=== PATIENT | female | born 1975 | race American Indian/Alaskan Native ===

== ENCOUNTER 2020-10-01 17:43 | Emergency (ER) | payer MEDICAID ==
--- NOTE | 2020-10-01 19:49 | Event Note ---
ED Screening Note ED Screening Note: left sided abd pain radiates to the back began 3 days ago +n/v no diarrhea normal BM this morning no blood in stool or vomit PMHx sarcoidosis, htn, copd no allergies to meds LNMP: 09/18/2020 PSHx of partial colectomy for constipation This initial assessment/diagnostic orders/clinical plan/treatment(s) is/are subject to change based on patients health status, clinical progression and re- assessment by fellow clinical providers in the ED. Further treatment and workup at subsequent clinical providers discretion. Patient/guardian urged not to elope from the ED as their condition may be serious if not clinically assessed and managed. Initial orders include: labs, ua
[2020-10-01 20:15] LABS: Basophils # (Auto) 0.1 K/mm3 (0.0-0.1); Basophils % (Auto) 0.7 % (0.0-1.8); Eosinophils % (Auto) 0.1 % (0.0-4.3); Hematocrit 34.1 % (30.3-42.9); Lymphocytes # (Auto) 1.4 K/mm3 (1.2-5.4); Lymphocytes % (Auto) 14.1 % (13.4-35.0); Mean Corpuscular HGB Conc 32 % (30-34); Monocytes # (Auto) 0.6 K/mm3 (0.0-0.8); Monocytes % (Auto) 5.8 % (0.0-7.3); Platelet Count 393 K/mm3 (140-440); Red Blood Count 5.02 M/mm3 (3.65-5.03)
[2020-10-01 20:18] LABS: Mean Corpuscular Volume 68 fl (79-97)
[2020-10-01 20:19] LABS: Red Cell Distribution Width 23.3 % (13.2-15.2)
[2020-10-01 20:38] LABS: Alanine Aminotransferase 12 units/L (7-56); Albumin 3.9 g/dL (3.9-5); BUN/Creatinine Ratio 20; Blood Urea Nitrogen 16 mg/dL (7-17); Calcium 9.7 mg/dL (8.4-10.2); Hemolysis Index 10
[2020-10-01] MEDS ORDERED: ONDANSETRON 4 MG/2 ML INJ IV ONE ×2 (20:51→22:52)
[2020-10-01] MEDS ORDERED: DICYCLOMINE 20 MG/2 ML INJ IM ONE (20:51)
[2020-10-01] MEDS ORDERED: SODIUM CHLORIDE 0.9% 1000 ML 1,000 ML IV ONE (20:51)
[2020-10-01 20:52] LABS: Bilirubin,Urine NEG (Negative); Blood,Urine NEG (Negative); Color,Urine Yellow (Yellow); Mucus,Urine 2+ /HPF; Protein,Urine <15 mg/dL mg/dL (Negative); Urobilinogen,Urine < 2.0 mg/dL (<2.0)
--- NOTE | 2020-10-01 21:09 | Emergency Department Report ---
ED Abdominal Pain HPI - General Chief Complaint: Abdominal Pain Stated Complaint: ABDOMINAL PAIN Time Seen by Provider: 10/01/20 19:48 Source: patient Mode of arrival: Ambulatory Limitations: No Limitations - History of Present Illness Initial Comments: Patient is a 44-year-old -[place] female with a history of colorectal resection 1 year ago who presents for left-sided abdominal pain at 8/10 with nausea vomiting x2 days. Patient denies fever, states she is followed by GI at [facility] unsure of MD Name. Patient states last p.o. intake 3 days ago. Symptoms are exacerbated by p.o. intake. Symptoms are relieved by nothing tried. Patient does endorse a small bowel movement this morning had no melena, denies bloody stools, current medications include Nexium, patient denies CVA, pos hx of COPD, LMP 09/18/2020. Severity scale (0 -10): 10 - Related Data Previous Rx's Medication Instructions Recorded Last Taken Type Docusate Sodium [Colace] 100 mg PO BID PRN #30 capsule 10/01/20 Unknown Rx cephALEXin [Keflex] 500 mg PO Q8HR #21 cap 10/01/20 Unknown Rx polyethylene glycoL 3350 [Miralax 17 gm PO BID 7 Days #14 packet 10/01/20 Unknown Rx 3350] ED Review of Systems ROS: Stated complaint: ABDOMINAL PAIN Other details as noted in HPI Constitutional: chills, fever, malaise Eyes: denies: eye pain, eye discharge, vision change ENT: denies: ear pain, throat pain Respiratory: denies: cough, shortness of breath, wheezing Cardiovascular: denies: chest pain, palpitations Endocrine: no symptoms reported Gastrointestinal: abdominal pain, nausea, vomiting. denies: diarrhea, constipation, melena Genitourinary: denies: urgency, dysuria, frequency, hematuria, discharge Musculoskeletal: back pain Skin: as per HPI Neurological: denies: headache, weakness, paresthesias Psychiatric: denies: anxiety, depression Hematological/Lymphatic: denies: easy bleeding, easy bruising ED Past Medical Hx - Past Medical History Additional medical history: sarcoidosis - Surgical History Past Surgical History?: No Additional Surgical History: colo-rectal surgery - Medications Home Medications: Home Medications Medication Instructions Recorded Confirmed Last Taken Type Docusate Sodium [Colace] 100 mg PO BID PRN #30 capsule 10/01/20 Unknown Rx cephALEXin [Keflex] 500 mg PO Q8HR #21 cap 10/01/20 Unknown Rx polyethylene glycoL 3350 [Miralax 17 gm PO BID 7 Days #14 packet 10/01/20 Unknown Rx 3350] ED Physical Exam - General Limitations: No Limitations General appearance: alert, in no apparent distress - Head Head exam: Present: atraumatic, normocephalic - Eye Eye exam: Present: normal appearance - ENT ENT exam: Present: mucous membranes moist - Neck Neck exam: Present: normal inspection, full ROM. Absent: tenderness - Respiratory Respiratory exam: Present: normal lung sounds bilaterally. Absent: respiratory distress, wheezes, stridor, chest wall tenderness - Cardiovascular Cardiovascular Exam: Present: regular rate, normal rhythm, normal heart sounds. Absent: systolic murmur, diastolic murmur, rubs, gallop - GI/Abdominal GI/Abdominal exam: Present: soft, tenderness (LUQ ), guarding (mild guarding lUQ ), rebound, normal bowel sounds. Absent: distended, rigid, bruit, hernia - Expanded GI/Abdominal Exam Expanded GI/Abdominal exam: Present: Rovsing's sign. Absent: psoas sign, obturator sign, heel tap sign, Lopez's sign, tenderness at Mcburney's Point, ascites - Rectal Rectal exam: Present: deferred - Extremities Exam Extremities exam: Present: normal inspection, full ROM. Absent: tenderness - Back Exam Back exam: Present: full ROM, tenderness, CVA tenderness (R), CVA tenderness (L) - Neurological Exam Neurological exam: Present: alert, oriented X3, CN II-XII intact, normal gait - Psychiatric Psychiatric exam: Present: normal affect, normal mood - Skin Skin exam: Present: warm, dry, intact, normal color. 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 10/01/20 22:53 ED Medical Decision Making - Lab Data Result diagrams: 10/01/20 20:03 10/01/20 20:03 Labs 10/01/20 10/01/20 10/01/20 20:03 20:03 20:03 WBC 9.6 RBC 5.02 Hgb 11.0 Hct 34.1 MCV 68 L MCH 22 L MCHC 32 RDW 23.3 H Plt Count 393 Lymph % (Auto) 14.1 [place] % (Auto) 5.8 Eos % (Auto) 0.1 Baso % (Auto) 0.7 Lymph # (Auto) 1.4 [place] # (Auto) 0.6 Eos # (Auto) 0.0 Baso # (Auto) 0.1 Seg Neutrophils % 79.3 H Seg Neutrophils # 7.6 Sodium 135 L Potassium 3.6 Chloride 97.3 L Carbon Dioxide 25 Anion Gap 16 BUN 16 Creatinine 0.8 Estimated GFR > 60 BUN/Creatinine Ratio 20 Glucose 88 Calcium 9.7 Total Bilirubin 0.60 AST 18 ALT 12 Alkaline Phosphatase 54 Total Protein 7.9 Albumin 3.9 Albumin/Globulin Ratio 1.0 Lipase 18 HCG, Qual Negative Urine Color Urine Turbidity Urine pH Ur Specific Hodge Urine Protein Urine Glucose (UA) Urine Ketones Urine Blood Urine Nitrite Urine Bilirubin Urine Urobilinogen Ur Leukocyte Esterase Urine WBC (Auto) Urine RBC (Auto) U Epithel Cells (Auto) Urine Mucus 10/01/20 20:38 WBC RBC Hgb Hct MCV MCH MCHC RDW Plt Count Lymph % (Auto) [place] % (Auto) Eos % (Auto) Baso % (Auto) Lymph # (Auto) [place] # (Auto) Eos # (Auto) Baso # (Auto) Seg Neutrophils % Seg Neutrophils # Sodium Potassium Chloride Carbon Dioxide Anion Gap BUN Creatinine Estimated GFR BUN/Creatinine Ratio Glucose Calcium Total Bilirubin AST ALT Alkaline Phosphatase Total Protein Albumin Albumin/Globulin Ratio Lipase HCG, Qual Urine Color Yellow Urine Turbidity Slightly-cloudy Urine pH 5.0 Ur Specific Hodge 1.021 Urine Protein <15 mg/dl Urine Glucose (UA) Neg Urine Ketones 20 Urine Blood Neg Urine Nitrite Neg Urine Bilirubin Neg Urine Urobilinogen < 2.0 Ur Leukocyte Esterase Sm Urine WBC (Auto) 12.0 H Urine RBC (Auto) 4.0 U Epithel Cells (Auto) 4.0 Urine Mucus 2+ - EKG Data EKG shows normal: sinus rhythm, axis, intervals, QRS complexes, ST-T waves Rate: normal - EKG Data Interpretation: normal EKG (NSR No ST Elevated AR , ekg interp by ed attending) - Radiology Data Radiology results: report reviewed, image reviewed CT ABDOMEN AND PELVIS WITH CONTRAST INDICATION / CLINICAL INFORMATION: abd pain. TECHNIQUE: Axial CT images were obtained through the abdomen and pelvis following the administration of intravenous contrast. All CT scans at this location are performed using CT dose reduction for ALARA by means of automated exposure control. COMPARISON: None available. FINDINGS: LOWER CHEST: No significant abnormality. LIVER: Multiple hypoattenuating structures throughout the liver are compatible with cysts. There is a small hemangioma in the left hepatic lobe. GALLBLADDER: No significant abnormality. PANCREAS: No significant abnormality. SPLEEN: No significant abnormality. ADRENALS: No significant abnormality. KIDNEYS / URETERS: No significant abnormality. Small left renal cyst. URINARY BLADDER: Decompressed. No significant abnormality. REPRODUCTIVE ORGANS: There is a 2.3 cm left ovarian cyst. STOMACH / SMALL BOWEL: Tiny hiatal hernia. There are a few loops of fluid- filled, dilated small bowel with mild mucosal enhancement. There is mesenteric swirling within the anterior mid abdomen, just left of midline. This is best visualized on axial series 2, images 70-80. COLON: Distal colonic anastomosis appears intact. PERITONEUM: Small volume pelvic free fluid. No free air. No fluid collection. LYMPH NODES: No significant adenopathy. AORTA / ARTERIES: No significant abnormality. IVC / VEINS: No significant abnormality. SKELETAL SYSTEM: No significant abnormality. ADDITIONAL FINDINGS: None. IMPRESSION: 1. Findings suspicious for low-grade partial small bowel obstruction with mesenteric swirling in the anterior mid abdomen as described above. An internal hernia cannot be excluded. There is no bowel perforation. 2. 2.3 cm left ovarian cyst. 3. Small volume pelvic free fluid. 4. Small hepatic cysts and left hepatic lobe hemangioma. Signer Name: Sweta Bhatti MD Signed: 10/01/2020 9:52 PM Workstation Name: [id number] Transcribed By: SS Dictated By: SWETA BHATTI Electronically Authenticated By: SWETA BHATTI Signed Date/Time: 10/01/202151 DD/ 43 TD/TT: Print Cancel - Medical Decision Making CT Abd Pelvis: Findings suspicious for low-grade partial small bowel obstruction with mesenteric swirling in the anterior mid abdomen as described above. An internal hernia cannot be excluded. There is no bowel perforation. 2. 2.3 cm left ovarian cyst. 3. Small volume pelvic free fluid. 4. Small hepatic cysts and left hepatic lobe hemangioma. , labs noted above , ua pos for WBC, Luek, , pt is tolerating po intake a this time. Critical care attestation.: If time is entered above; I have spent that time in minutes in the direct care of this critically ill patient, excluding procedure time. ED Disposition Clinical Impression: UTI (urinary tract infection) Qualifiers: Urinary tract infection type: acute cystitis Hematuria presence: without hematuria Qualified Code(s): N30.00 - Acute cystitis without hematuria Abdominal pain Qualifiers: Abdominal location: left lower quadrant Qualified Code(s): R10.32 - Left lower quadrant pain Constipation Qualifiers: Constipation type: other constipation type Qualified Code(s): K59.09 - Other constipation Disposition: DC- TO HOME OR SELFCARE Is pt being admited?: No Does the pt Need Aspirin: No Condition: Stable Instructions: Abdominal Pain, Adult, [id number], Antibiotic Medicine, Adult, Abdominal Pain (ED) Prescriptions: Docusate Sodium [Colace] 100 mg PO BID PRN #30 capsule PRN Reason: stool softener cephALEXin [Keflex] 500 mg PO Q8HR #21 cap polyethylene glycoL 3350 [Miralax 3350] 17 gm PO BID 7 Days #14 packet Referrals: [facility] [Provider Group] - 3-5 Days Forms: Work/School Release Form(ED) Time of Disposition: 23:49
--- NOTE | 2020-10-01 21:56 | Cat Scan Report ---
CT ABDOMEN AND PELVIS WITH CONTRAST INDICATION / CLINICAL INFORMATION: abd pain. TECHNIQUE: Axial CT images were obtained through the abdomen and pelvis following the administration of intraven ous contrast. All CT scans at this location are performed using CT dose reduction for ALARA by means of automated exposure control. COMPARISON: None available. FINDINGS: LOWER CHEST: No significant abnormality. LIVER: Multiple hypoattenuating structures throughout the liver are compatible with cysts. There is a small hemangioma in the left hepatic lobe. GALLBLADDER: No significant abnormality. PANCREAS: No significant abnormality. SPLEEN: No significant abnormality. ADRENALS: No significant abnormality. KIDNEYS / URETERS: No significant abnormality. Small left renal cyst. URINARY BLADDER: Decompressed. No significant abnormality. REPRODUCTIVE ORGANS: There is a 2.3 cm left ovarian cyst. STOMACH / SMALL BOWEL: Tiny hiatal hernia. There are a few loops of fluid-filled, dilated small bowel with mild mucosal enhancement. There is mesenteric swirling within the anterior mid abdomen, just le ft of midline. This is best visualized on axial series 2, images 70-80. COLON: Distal colonic anastomosis appears intact. PERITONEUM: Small volume pelvic free fluid. No free air. No fluid collection. LYMPH NODES: No significant adenopathy. AORTA / ARTERIES: No significant abnormality. IVC / VEINS: No significant abnormality. SKELETAL SYSTEM: No significant abnormality. ADDITIONAL FINDINGS: None. IMPRESSION: 1. Findings suspicious for low-grade partial small bowel obstruction with mesenteric swirling in the anterior mid abdomen as described above. An internal hernia cannot be excluded. There is no bowel per foration. 2. 2.3 cm left ovarian cyst. 3. Small volume pelvic free fluid. 4. Small hepatic cysts and left hepatic lobe hemangioma. Signer Name: Nishant Bhatti MD Signed: 10/01/2020 9:52 PM Workstation Name: [id number]
[2020-10-01] MEDS ORDERED: MORPHINE 4 MG/1 ML INJ IV ONE (22:52)
[2020-10-02 07:11] VITALS: BP 149/76
== END 2020-10-01 23:55 | disposition home or self-care (01) ==
LOC: ED 17:43
DX: N39.0 Urinary tract infection, site not specified (principal); K59.00 Constipation, unspecified; R10.9 Unspecified abdominal pain; Z98.890 Other specified postprocedural states; Z79.899 Other long term (current) drug therapy
CPT/HCPCS: 36415; 74177; 80053; 81001; 83690; 84703; 85025; 87086; 96361; 96372; 96374; 96375; 96376; 99284; J0500; J2270; J2405; J7030; Q9967